=== PATIENT | female | born 1980 | race Caucasian/White ===

== ENCOUNTER 2019-04-29 17:18 | Emergency (ER) | payer OTHER ==
[~2019-04-29] VITALS: Ht 172.7 cm; Wt 74.4 kg
[2019-04-29 17:40] VITALS: BP_SYST 142
[2019-04-29] MEDS: IBUPROFEN 800 MG TABLET PO ONE (19:33)
[2019-04-29 19:50] VITALS: BP_SYST 140
== END 2019-04-29 19:49 | disposition home or self-care (01) ==
LOC: SED 17:18
DX: S83.92XA Sprain of unspecified site of left knee, initial encounter (principal); R03.0 Elevated blood-pressure reading, without diagnosis of hypertension; Z88.1 Allergy status to other antibiotic agents; X58.XXXA Exposure to other specified factors, initial encounter; Y93.9 Activity, unspecified; Y92.89 Other specified places as the place of occurrence of the external cause; Y99.8 Other external cause status
CPT/HCPCS: 73564; 99283